=== PATIENT | female | born 1955 | race Caucasian/White ===

== ENCOUNTER 2020-09-07 10:54 | Emergency (ER) | payer MEDICARE ==
[~2020-09-07] VITALS: Ht 170.2 cm; Wt 49.9 kg
[~2020-09-07 10:54] MED LIST: ASPI81EC PO; DIPATR PO; DOCU100 PO; FAMO40 PO; MECL25 PO; MULVITMINF PO; Milk Of Ma400 MG/5 M PO; Norco 5-325 Ta1 EACH PO; POTPHO PO; PROM25 PO; Percocet 5-3251 EACH PO
[2020-09-07] MEDS ORDERED: IBUP400 PO (12:41)
[2020-09-07] MEDS ORDERED: Percocet 5-3251 EACH PO (12:41)
[2020-09-07] MEDS ORDERED: ONDA4ODT SL (12:41)
== END 2020-09-07 13:15 | disposition home or self-care (01) ==
LOC: ER 10:54
DX: S52.532A Colles' fracture of left radius, initial encounter for closed fracture (principal); Z88.0 Allergy status to penicillin; Z88.2 Allergy status to sulfonamides; Z88.1 Allergy status to other antibiotic agents; F17.210 Nicotine dependence, cigarettes, uncomplicated; W01.0XXA Fall on same level from slipping, tripping and stumbling without subsequent striking against object, initial encounter
CPT/HCPCS: 25605; 29105; 73110; 73200; 93005; 93010; 96374-59; 96375-59; 99284-25; J1170; J2405; J2704; J7030

== ENCOUNTER 2020-09-12 11:08 | Day surgery (SDC) | payer MEDICARE ==
[~2020-09-12] VITALS: Ht 170.2 cm; Wt 50.9 kg
[~2020-09-12 11:08] MED LIST changes: +IBUP400 PO; +ONDA4ODT SL
--- NOTE | 2020-09-12 13:59 | NUR ---
09/12/20 1359 SHELLI RODRIGUEZ PATIENT UP TO CIGAR MAKER. VSS. ADMINISTERING IV PAIN MEDICATION - FENTANYL FOR PAIN PER MD ORDER. PT VERBALIZES 8/10 PAIN. TOLERATING SIPS OF LIQUIDS. PT TO BEDSIDE
== END 2020-09-12 14:48 | disposition home or self-care (01) ==
LOC: ORSCSDS 11:08
PROVIDERS: Orthopaedic Surgery
PROC: 0PSJ04Z Reposition Left Radius with Internal Fixation Device, Open Approach (ICD-10-PCS; principal; 2020-09-12 12:00)
DX: S52.572A Other intraarticular fracture of lower end of left radius, initial encounter for closed fracture (principal); J44.9 Chronic obstructive pulmonary disease, unspecified; F17.210 Nicotine dependence, cigarettes, uncomplicated
CPT/HCPCS: A9270-GY; C1713; J0171; J1100; J2370; J2405; J2704; J3010; J3370

== ENCOUNTER → 2023-06-25 | Outpatient (CLI) | payer OTHER ==
[2023-06-25 14:54] LABS: BASOPHILS ABSOLUTE AUTO 0.07 K/mm3 (0.00-0.23); BASOPHILS PERCENT AUTO 1 % (0-2); EOSINOPHILS ABSOLUTE AUTO 0.12 K/mm3 (0.00-0.68); EOSINOPHILS PERCENT AUTO 2 % (0-6); Hemoglobin 14.5 g/dL (11.5-16.0); IMMATURE GRAN ABSOLUTE AUTO 0.03 K/mm3 (0.00-0.10); IMMATURE GRAN PERCENT AUTO 0 % (0-1); LYMPHOCYTES ABSOLUTE AUTO 1.26 K/mm3 (0.84-5.20); LYMPHOCYTES PERCENT AUTO 17 % (21-46); MONOCYTES ABSOLUTE AUTO 0.63 K/mm3 (0.16-1.47); MONOCYTES PERCENT AUTO 9 % (4-13); Mean Corpuscular HGB 30.7 pg (26.0-34.0); Mean Corpuscular Volume 93 fL (80-100); Mean Platelet Volume 9.5 fL (9.1-12.4); NEUTROPHILS ABSOLUTE AUTO 5.29 K/mm3 (1.96-9.15); NEUTROPHILS PERCENT AUTO 72 % (41-73); Platelet Count 354 K/mm3 (150-400); RDW Coefficient Variation 12.8 % (11.7-14.2); RDW Standard Deviation 43.8 fL (35.1-46.3); Red Blood Cell Count 4.72 M/mm3 (3.80-5.20)
[2023-06-25 15:22] LABS: Albumin, Blood 3.5 g/dL (3.4-5.0); Albumin/Globulin Ratio 0.9 (0.8-1.8); Bilirubin, Total 0.4 mg/dL (0.1-1.0); Bun/Creatinine Ratio 16.5 (12.0-20.0); Calcium, Blood 8.8 mg/dL (8.5-10.1); Creatinine, Blood 0.61 mg/dL (0.40-1.00); Globulin, Blood 3.7 g/dL (2.2-4.0); Potassium, Blood 3.6 mmol/L (3.5-5.5); Thyroid Stimulating Hormone 3.82 uIU/mL (0.360-4.800); Total Protein, Blood 7.2 g/dL (6.4-8.2)
== END | disposition home or self-care (01) ==
LOC: LAB 14:33 → LAB SHORT 14:33
PROVIDERS: Physician Assistant
DX: R53.83 Other fatigue (principal); R06.02 Shortness of breath; R42 Dizziness and giddiness
CPT/HCPCS: 80053; 84443; 85025

== ENCOUNTER 2023-09-04 10:45 | Inpatient (IN) | payer OTHER ==
[~2023-09-04] VITALS: Ht 170.2 cm; Wt 43.2 kg
[2023-09-04 11:34] LABS: BASOPHILS ABSOLUTE AUTO 0.08 K/mm3 (0.00-0.23); BASOPHILS PERCENT AUTO 1 % (0-2); EOSINOPHILS ABSOLUTE AUTO 0.08 K/mm3 (0.00-0.68); EOSINOPHILS PERCENT AUTO 1 % (0-6); Hematocrit 46.7 % (33.0-51.0); Hemoglobin 15.3 g/dL (11.5-16.0); IMMATURE GRAN ABSOLUTE AUTO 0.07 K/mm3 (0.00-0.10); IMMATURE GRAN PERCENT AUTO 1 % (0-1); LYMPHOCYTES ABSOLUTE AUTO 1.37 K/mm3 (0.84-5.20); LYMPHOCYTES PERCENT AUTO 14 % (21-46); MONOCYTES ABSOLUTE AUTO 0.74 K/mm3 (0.16-1.47); MONOCYTES PERCENT AUTO 8 % (4-13); Mean Corpuscular HGB 30.4 pg (26.0-34.0); Mean Corpuscular HGB Conc 32.8 g/dL (31.5-36.5); Mean Corpuscular Volume 93 fL (80-100); Mean Platelet Volume 9.8 fL (9.1-12.4); NEUTROPHILS ABSOLUTE AUTO 7.32 K/mm3 (1.96-9.15); NEUTROPHILS PERCENT AUTO 76 % (41-73); Platelet Count 422 K/mm3 (150-400); RDW Coefficient Variation 13.2 % (11.7-14.2); RDW Standard Deviation 44.7 fL (35.1-46.3); Red Blood Cell Count 5.03 M/mm3 (3.80-5.20); White Blood Cell Count 9.66 K/mm3 (4.00-11.30)
[2023-09-04 11:35] LABS: Chloride (POC) 98 mmol/L (98-108); Creatinine (POC) 0.7 mg/dL (0.6-1.0); Glucose (ISTAT POC) 113 mg/dL (70-99); Hemoglobin (POC) 16.3 g/dL (12.0-16.0); Potassium (POC) 3.5 mmol/L (3.5-5.5); Sodium (POC) 138 mmol/L (135-148); Total CO2 (POC) 28 mmol/L (21-32)
[2023-09-04 12:25] LABS: Albumin, Blood 3.5 g/dL (3.4-5.0); Calcium, Blood 8.9 mg/dL (8.5-10.1); Potassium, Blood 3.6 mmol/L (3.5-5.5)
[2023-09-04 12:26] LABS: Albumin/Globulin Ratio 0.9 (0.8-1.8); Bilirubin, Total 0.5 mg/dL (0.1-1.0); Bun/Creatinine Ratio 17.6 (12.0-20.0); Creatinine, Blood 0.74 mg/dL (0.40-1.00); Globulin, Blood 4.1 g/dL (2.2-4.0); Total Protein, Blood 7.6 g/dL (6.4-8.2)
[2023-09-04 17:00] VITALS: BP 105/65
[2023-09-04 17:29] VITALS: BP 105/65
--- NOTE | 2023-09-04 18:07 | NUR ---
NURSING PCU DAYSHIFT SUMMARY: Pt arrived from ER at approx 1700, xfer w/SBA to unit bed. A/O, very pleasant, cooperative w/care. Mild general weakness. Skin fragile w/no breakdown/wounds noted. Tele in place, NSR 80's, no c/o CP/pressure, no noted edema. L/S cta though dim in RML and absent RLL, denies dyspnea at rest though present w/exertion, productive cough per pt, O2 sat low 90's on RA. Abd SNT, BT+, voiding w/o difficulty per pt. PIV x1, s/l. Family at bedside including spouse and dauther, plan of care discussed and questions answered. Pt and family deny any current needs or questions regarding plan of care. Call light in reach, cont to monitor until rpt is given to NOC RN.
--- NOTE | 2023-09-04 18:11 | NUR ---
NURSING PCU DAYSHIFT SUMMARY: Pt arrived from ER at approx 1700, xfer w/SBA to unit bed. A/O, very pleasant, cooperative w/care. Mild general weakness. Skin fragile w/no breakdown/wounds noted. Tele in place, NSR 80's, no c/o CP/pressure, no noted edema. L/S cta though dim in RML and absent RLL, denies dyspnea at rest though present w/exertion, productive cough per pt, O2 sat low 90's on RA. Abd SNT, BT+, voiding w/o difficulty per pt. PIV x1, s/l. Family at bedside including spouse and daughter, plan of care discussed and questions answered. Pt and family deny any current needs or questions regarding plan of care. Call light in reach, cont to monitor until rpt is given to NOC RN.
[2023-09-04 20:16] VITALS: BP 98/50
--- NOTE | 2023-09-04 21:06 | NUR ---
ASSUMPTION OF CARE THIS RN ASSUMED CARE OF PATIENT AT 1900. PT A&O X4. DENIES CHEST PAIN/PRESSURE AND DIZZINESS. PT NOTED TO BE UNSTEADY WHILE WALKING. REFUSED TO USE BSC; THIS RN EDUCATED PT ON AMBULATION WITH STAFF ONLY TO PREVENT FALLS. SBP 90'S. MD CAGE CALLED REGARDING MAP'S OF 59-61. MD CAGE WITH INSTRUCTIONS TO CONTINUE TO MONITOR FOR NOW AND TO CALL BACK IF MAP CONTINUES TO BE LOW FOR POSSIBLE IV BOLUS. SR ON MONITOR WITH HR 70-80S. ON RA WITH SPO2 90-92%. PT REPORTS SOB WITH EXERTION. REPORTING PRODUCTIVE COUGH. FAMILY AT BEDSIDE. BED IN LOWEST POSITION AND CALL LIGHT WITHIN REACH.
[2023-09-04 21:41] VITALS: BP 117/56
[2023-09-04 23:47] VITALS: BP 105/69
[2023-09-05 03:52] VITALS: BP 115/64
--- NOTE | 2023-09-05 05:01 | NUR ---
SHIFT SUMMARY NO ACUTE CHANGES OVERNIGHT SINCE PREVIOUS NOTE. SEE ASSESSMENT. SBP 100-110'S. SR WITH HR 80'S. DENIES CHEST PAIN/PRESSURE, SOB AT REST, AND DIZZINESS. ON RA WITH SPO2 >90%. A&O, CALLING APPROPRIATELY. DAUGHTER AT BEDSIDE. UP TO BATHROOM WITH 1P ASSIST; PT WITH GENERALIZED WEAKNESS AND UNSTEADY GAIT AT TIMES. BED IN LOWEST POSITION AND CALL LIGHT WITHIN REACH. THIS RN WILL REPORT TO ONCOMING RN.
[2023-09-05 08:26] VITALS: BP 102/49
--- NOTE | 2023-09-05 08:30 | NUR ---
AM ASSESSMENT: Pt resting in bed with daughter at bedside. Pt denies pain, SOB, CP, dizziness at this time. BP and HR stable at this time. BIox at 87-90% on RA. Placed on 2L O2 per NC and pt and daughter educated on oxygen use. Pt oriented to situation, place, family at bedside. Confused to date, time, unable to state president or birthday. Daughter states Pt did not sleep last night. Will continue to assess orientation at a later time, after Pt gets some rest. Call light in reach. Asked family to let RN know when they leave so bed alarm could be placed. Will continue to monitor.
--- NOTE | 2023-09-05 11:08 | NUR ---
Spiritual care visit conducted. Patient is lying in bed and resting. Spouse Guille and Татьяна brown are present. They talk about the new on set of cancer and the way the news has hit everyone very hard. They have a very strong family structure and have a way of getting through challenging things well. Татьяна states often in our conversation, "We will get through it." I Guille is suffering from dental pain and is having a challenging time focusing on anything other than the pain. I normalize their experience and affirm their strong support system, as well as provide therapeutic listening and a calming presence. I will continue to remain available to patient and family.
[2023-09-05 11:35] VITALS: BP 101/63
--- NOTE | 2023-09-05 12:42 | NUR ---
Joint visit with Dr Alston this afternoon. Pt resting in bed upon arrival. Pt's spouse, Pt's daughter, and Pt's grandchildren at bedside. Dr Alston discussed findings of head CT concerning for mets to the brain. This RN remained behind for support and answered questions. Deferred some questions for oncologist to discuss. Family expresses appreciation. Pt agreeable for this RN to F/U for supportive visits. Spoke with Primary RN Vance prior to visit and discussed case. Palliative Care will remain available
--- NOTE | 2023-09-05 13:38 | NUR ---
UPDATE: Dr Alston in to talk with family and patient with palliative care. Dr. Marquis also in to talk with family and patient. Family is waiting for another son to arrive prior to decisions being made regarding treatment plan. Family and patient denies needs at this time. Call light in reach. Will continue to monitor.
[2023-09-05 16:06] VITALS: BP 114/62
--- NOTE | 2023-09-05 17:53 | NUR ---
Shift Summary: Pt sitting up in bed with multiple family members in room at bedside. Pt appears comfortable. HR has remained in NSR with rate <100, some PVC's and PAC's noted. BP has remained stable. Biox has been >90% since placement of O2 at 2L per NC this AM. Pt has been more oriented throughout the shift, now able to state birthday, but still has some confusion. Does follow directions well. No other changes at this time. Will report to night RN. Stable at this time.
[2023-09-05 19:46] VITALS: BP 108/58
[2023-09-06 00:35] VITALS: BP 93/62
--- NOTE | 2023-09-06 04:19 | NUR ---
SHIFT SUMMARY THIS RN ASSUMED CARE OF PATIENT AT 1900. PT A&O X3-4 DURING THIS SHIFT, ONLY CONFUSED ABOUT MONTH BUT KNOWS YEAR. ONE EPISODE OF HALLUCINATIONS AND AGGITATION. PT WAS ABLE TO BE REORIENTED. DAUGHTER REMAINS AT BEDSIDE. SR WITH PAC'S/PVC'S, OCCASIONAL BIGEMINY. BP STABLE. ON 2L VIA NC WITH SPO2 >90%, PT OCCASIONALLY TAKING O2 OUT OF HER NOSE DURING THIS NIGHT. PT REPORTS COUGH IS IMPROVED. BED ALARM ON FOR SAFETY. UP TO BATHROOM WITH 1P ASSIST. BED IN LOWEST POSITION AND CALL LIGHT WITHIN REACH. THIS RN WILL REPORT TO ONCOMING DAYSHIFT RN.
[2023-09-06 07:58] VITALS: BP 105/56
--- NOTE | 2023-09-06 10:41 | NUR ---
Pt resting in bed and more alert today. Family at bedside. Pt denies pain, nausea, and dyspnea. She reports mild but manageable anxiety. Engaged in therapeutic discussion regarding goals of care. Family reports just recently talking with Pt regarding wishes and Pt still trying to process information. Offered therapeutic listening and answered questions. Family reports plan to continue conversation and expresses appreciation. Spoke with Primary RN Luis Manuel, RN Nurse Instructor Herminia, and discussed case. Palliative Care will remain available
[2023-09-06 11:05] VITALS: BP 99/59
--- NOTE | 2023-09-06 17:12 | NUR ---
SHIFT SUMMARY: PT ALERT AND ORIENTED X3, ABLE TO FOLLOW COMMANDS AND MAKE NEEDS KNOWN. FORGETFUL. BP AND HR STABLE. AFEBRILE. SPO2 >98% ON 2L NC. RESPIRATIONS EVEN AND UNLABORED, PT WITH HARSH OCCASIONAL COUGH, STATES IMPROVEMENT FROM PREVIOUS DAYS. PT WITH OVERALL FRAIL APPEARANCE, POOR PO INTAKE. ENCOURGAED FLUIDS AND FOOD THROUGHOUT THE DAY. PT TWO PERSON ASSIST TO AND FROM BSC. MINIMAL URIANRY OUTPUT, BLADDER SCAN-130ML. NO BM. MD AT BEDSIDE THIS AM, PT AND FAMILY REMAIN UNDECIDED ON PT FUTURE PLAN OF CARE. PT EXPRESSED CONCERNS OF TAKING HOME WITHOUT HOSPITAL BED, BSC, AND WHEELCHAIR. TRACK CAR OPERATOR NOTIFIED AND ACTIVELY WORKING ON REQUEST. HOME EVAL ORDERED. O2 TANK DELIVERED, IN PT ROOM. MUTIPLE FAMILY MEMBERS IN THROUGHOUT SHIFT. DAUGHTER AND UPDATED ON PT CARE. BED IN LOW, CALL LIGHT IN REACH, WILL REPORT TO ONCOMING RN.
[2023-09-06 19:41] VITALS: BP 100/44
[2023-09-07 00:14] VITALS: BP 116/66
[2023-09-07 04:10] VITALS: BP 106/55
--- NOTE | 2023-09-07 04:52 | NUR ---
SHIFT SUMMARY NO ACUTE CHANGES OVERNIGHT. NO NOTED HALLUCINATIONS OR EPISODES OF CONFUSION FOR THIS RN. SR WITH PAC'S/PVC'S NOTED ON MONITOR WITH HR 70'S. BP STABLE. ON 2L VIA NC WITH SPO2 >92%. AFEBRILE. DAUGHTER REMAINS AT BEDSIDE. BED IN LOWEST POSITION AND CALL LIGHT WITHIN REACH. THIS RN WILL REPORT TO ONCOMING DAYSHIFT RN.
[2023-09-07 09:09] VITALS: BP 101/55
[2023-09-07] MEDS ORDERED: DEXA4 PO (14:44)
--- NOTE | 2023-09-07 15:33 | NUR ---
DISCHARGE: PT DISCHARGED VIA WHEELCHAIR AT 1520. EDUCATION, DISCHARGE INSTRUCTIONS, AND FOLLOW UP APPOINTMENTS REVIEWED. PT, DAUGHTER, AND VERBALIZED UNDERSTANDING. ALL BELONGINGS WITH PT.
== END 2023-09-07 15:30 | disposition home health service (06) | DRG 180 ==
LOC: ER 10:45 → ERHOLD 10:46 → PCU 10:46 → ERHOLD 10:46 → PCU 16:58
PROVIDERS: Student in an Organized Health Care Education/Training Program; ADMIT Internal Medicine
PROC: B24BZZZ Ultrasonography of Heart with Aorta (ICD-10-PCS; principal; 2023-09-05)
DX: C34.31 Malignant neoplasm of lower lobe, right bronchus or lung (principal); J96.01 Acute respiratory failure with hypoxia; C79.31 Secondary malignant neoplasm of brain; J98.11 Atelectasis; I47.19 Other supraventricular tachycardia; E46 Unspecified protein-calorie malnutrition; Z68.1 Body mass index [BMI] 19.9 or less, adult; I45.6 Pre-excitation syndrome; F17.200 Nicotine dependence, unspecified, uncomplicated; R59.0 Localized enlarged lymph nodes; Z91.81 History of falling; Z79.1 Long term (current) use of non-steroidal anti-inflammatories (NSAID); Z88.1 Allergy status to other antibiotic agents; Z88.2 Allergy status to sulfonamides; Z98.1 Arthrodesis status; Z71.6 Tobacco abuse counseling
CPT/HCPCS: 70470; 71045; 71260; 74177; 80047; 80053; 83735; 83880; 85014; 85025; 93005; 93010; 93306; 94760; 96361; 96372; 96374-59; 96375; 99285-25; A9270; G0378; J1100; J1650; J2690; J7030; Q9967

== ENCOUNTER 2023-10-01 13:59 | Emergency (ER) | payer OTHER ==
[~2023-10-01] VITALS: Ht 170.2 cm; Wt 39.0 kg
[~2023-10-01 13:59] MED LIST changes: +DEXA4 PO
[2023-10-01] MEDS ORDERED: OMEP20ER PO (14:24)
[2023-10-01 14:51] LABS: BASOPHILS ABSOLUTE AUTO 0.02 K/mm3 (0.00-0.23); BASOPHILS PERCENT AUTO 0 % (0-2); EOSINOPHILS ABSOLUTE AUTO 0.01 K/mm3 (0.00-0.68); EOSINOPHILS PERCENT AUTO 0 % (0-6); Hematocrit 44.6 % (33.0-51.0); Hemoglobin 14.9 g/dL (11.5-16.0); IMMATURE GRAN ABSOLUTE AUTO 0.04 K/mm3 (0.00-0.10); IMMATURE GRAN PERCENT AUTO 0 % (0-1); LYMPHOCYTES ABSOLUTE AUTO 0.31 K/mm3 (0.84-5.20); LYMPHOCYTES PERCENT AUTO 3 % (21-46); MONOCYTES ABSOLUTE AUTO 0.51 K/mm3 (0.16-1.47); MONOCYTES PERCENT AUTO 5 % (4-13); Mean Corpuscular HGB 30.5 pg (26.0-34.0); Mean Corpuscular HGB Conc 33.4 g/dL (31.5-36.5); Mean Corpuscular Volume 91 fL (80-100); Mean Platelet Volume 9.4 fL (9.1-12.4); NEUTROPHILS ABSOLUTE AUTO 9.23 K/mm3 (1.96-9.15); NEUTROPHILS PERCENT AUTO 91 % (41-73); Platelet Count 275 K/mm3 (150-400); RDW Standard Deviation 47.2 fL (35.1-46.3); Red Blood Cell Count 4.88 M/mm3 (3.80-5.20); White Blood Cell Count 10.12 K/mm3 (4.00-11.30)
[2023-10-01 15:07] LABS: Source, Urine Voided
[2023-10-01 15:16] LABS: Bilirubin, Urine Neg (Neg); Blood, Urine Neg (Neg); Glucose Qualitative, Urine Neg (Neg); Ketones, Urine 1+ (Neg); Leukocyte Esterase, Urine Neg (Neg); Nitrite, Urine Neg (Neg); Protein, Urine Neg (Neg); Urobilinogen, Urine 2+ (Normal)
[2023-10-01 15:19] LABS: Albumin, Blood 2.8 g/dL (3.4-5.0); Albumin/Globulin Ratio 0.8 (0.8-1.8); Bilirubin, Total 0.6 mg/dL (0.1-1.0); Bun/Creatinine Ratio 46.1 (12.0-20.0); Calcium, Blood 8.7 mg/dL (8.5-10.1); Creatinine, Blood 0.52 mg/dL (0.40-1.00); Globulin, Blood 3.7 g/dL (2.2-4.0); Potassium, Blood 4.1 mmol/L (3.5-5.5); Total Protein, Blood 6.5 g/dL (6.4-8.2)
[2023-10-01 15:30] LABS: Appearance, Urine Clear (Clear); Color, Urine Yellow (P-Yellow); Specific Gravity, Urine 1.025 (1.003-1.022)
[2023-10-01 16:42] VITALS: BP 114/62
[2023-10-03] MEDS ORDERED: LEVO750 PO (15:17)
== END 2023-10-01 16:53 | disposition home or self-care (01) ==
LOC: ER 13:59
PROVIDERS: Emergency Medicine
DX: E86.0 Dehydration (principal); C34.90 Malignant neoplasm of unspecified part of unspecified bronchus or lung; C79.31 Secondary malignant neoplasm of brain; I45.6 Pre-excitation syndrome; F17.210 Nicotine dependence, cigarettes, uncomplicated; Z88.0 Allergy status to penicillin; Z88.2 Allergy status to sulfonamides; Z88.1 Allergy status to other antibiotic agents; Z79.899 Other long term (current) drug therapy
CPT/HCPCS: 80053; 81003; 83690; 85025; 93005; 93010; 99285-25; J7030